=== PATIENT | female | born 1980 | race Caucasian/White ===

== ENCOUNTER 2017-04-02 16:18 | Emergency (ER) | payer SELFPAY | END 2017-04-02 18:00 | disposition home or self-care (01) | LOC: ER 16:18 | DX: S16.1XXA Strain of muscle, fascia and tendon at neck level, initial encounter (principal); S96.912A Strain of unspecified muscle and tendon at ankle and foot level, left foot, initial encounter; S76.911A Strain of unspecified muscles, fascia and tendons at thigh level, right thigh, initial encounter; F17.200 Nicotine dependence, unspecified, uncomplicated; V89.2XXA Person injured in unspecified motor-vehicle accident, traffic, initial encounter | CPT/HCPCS: 72040; 73552-RT; 73630-LT; 99284 ==

== ENCOUNTER 2017-04-05 20:45 | Emergency (ER) | payer OTHER | END 2017-04-05 21:57 | disposition home or self-care (01) | LOC: ER 20:45 | DX: S46.912A Strain of unspecified muscle, fascia and tendon at shoulder and upper arm level, left arm, initial encounter (principal); S93.401A Sprain of unspecified ligament of right ankle, initial encounter; F17.200 Nicotine dependence, unspecified, uncomplicated; Z88.1 Allergy status to other antibiotic agents; V49.9XXA Car occupant (driver) (passenger) injured in unspecified traffic accident, initial encounter | CPT/HCPCS: 73030-LT; 73610-RT; 99284 ==